=== PATIENT | male | born 1995 | race Caucasian/White ===

== ENCOUNTER 2020-07-24 10:40 | Emergency (ER) | payer BC ==
[~2020-07-24] VITALS: Ht 167.6 cm; Wt 52.6 kg
[2020-07-24 10:49] VITALS: Ht 167.6 cm; Wt 52.6 kg
[2020-07-24 12:08] VITALS: BP 99/59
== END 2020-07-24 12:08 | disposition home or self-care (01) ==
LOC: ED 10:40
DX: H61.23 Impacted cerumen, bilateral (principal); F17.210 Nicotine dependence, cigarettes, uncomplicated
CPT/HCPCS: 99406